=== PATIENT | female | born 1990 | race Hispanic/Latino ===

== ENCOUNTER 2018-12-22 01:35 | Emergency (ER) | payer OTHER ==
[2018-12-22] MEDS ORDERED: SODIUM CHLORIDE 0.9% 50ML 50 ML IVPB ONE (01:36)
[2018-12-22] MEDS ORDERED: KETOROLAC TROMETHAMINE INJ 30 MG/ML VIAL IV ONE (02:09)
[2018-12-22] MEDS ORDERED: PROMETHAZINE HCL INJ 12.5 MG in SODIUM CHLORIDE 0.9% 50ML 50 ML IVPB ONE (02:09)
[2018-12-22] MEDS ORDERED: PROMETHAZINE HCL INJ 25 MG/ML VIAL ONE (02:27)
--- NOTE | 2018-12-22 02:33 | ED.PDOC ---
History of Present Illness - General Chief Complaint: Abdominal Pain Stated Complaint: has gall stones and pain Time Seen by Provider: 12/22/18 02:09 Information Source: patient Exam Limitations: no limitations - History of Present Illness Initial Comments: PT WITH [facility] CONFIRMED GALLSTONES. C/O ABDOMINAL PAIN X 3 DAYS. WAS INITIALLY DIAGNOSED DURING RECENT . DELIVERED APPROX 2 WEEKS AGO. WAS SEEN AT [facility] LAST PM. PAIN HAS CONTINUED. COMES FOR EVALUATION. IS NOT CURRENTLY BREAST FEEDING. Abdominal Pain Onset Location: RUQ, epigastric Pain Radiation: no radiation Quality: moderate Improving Factors: nothing Worsening Factors: nothing Review of Systems - Review of Systems Constitutional: Denies: chills, fever EENTM: States: no symptoms reported Respiratory: Denies: cough, short of breath Cardiology: Denies: chest pain, palpitations Gastrointestinal/Abdominal: States: abdominal pain, nausea, vomiting. Denies: diarrhea Genitourinary: States: no symptoms reported Musculoskeletal: States: no symptoms reported Skin: States: no symptoms reported Neurological: States: no symptoms reported Endocrine: States: no symptoms reported Hematologic/Lymphatic: States: no symptoms reported Past Medical History (General) - Patient Medical History Hx Diabetes: No - Vaccination History Immunizations Up to Date: Yes - Female History Patient : No - Triage Comment ED Triage Comment: Has gall stones and has abd pain Family Medical History - Family History Father Family History: Unknown Physical Exam - Physical Exam General Appearance: Alert, No apparent distress Eyes, Ears, Nose, Throat Exam: PERRL/EOMI, normal ENT inspection Neck: non-tender, full range of motion, supple Respiratory: lungs clear, normal breath sounds Cardiovascular/Chest: regular rate, rhythm, no murmur Gastrointestinal/Abdominal: normal bowel sounds, soft, no organomegaly, other - TTP EPIGASTRIC AND RUQ. NO G/R, NO MURPHYS, UMBILICAL HERNIA EASILY REDUCABLE, NO EVIDECNE INCARCERATION OR STRANGULATION. Back Exam: normal inspection, no CVA tenderness Extremity: normal range of motion, non-tender, normal inspection Neurologic: alert, normal mood/affect Skin Exam: normal color, warm/dry Lymphatic: no adenopathy Progress - Progress Progress: 12/22/18 03:48 CURRENTLY PAIN FREE. ABD SOFT. D/W DR CALABRESE OK TO SEE IN OFFICE. Departure - Departure Clinical Impression: Biliary colic Time of Disposition: 03:49 Disposition: Discharge to Home or Self Care Condition: Good Departure Forms: ED Discharge - Pt. Copy, Patient Portal Self Enrollment Instructions: Gallstones (DC), Low Cholesterol, Saturated Fat, and Trans Fat Diet Referrals: Joshua French MD [Active Staff] - 12/23/18 Prescriptions: Dicyclomine HCl [Bentyl] 20 mg PO Q6HR PRN #20 tab PRN Reason: Abdominal Cramping Home Medications: Ambulatory Orders Dicyclomine HCl [Bentyl] 20 mg PO Q6HR PRN #20 tab 12/22/18
[2018-12-22 04:10] VITALS: BP 120/81; TEMP 97; O2SAT 99
== END 2018-12-22 04:10 | disposition home or self-care (01) ==
LOC: ER 01:35
DX: K80.20 Calculus of gallbladder without cholecystitis without obstruction (principal)
CPT/HCPCS: 80053; 82150; 83690; 85025; J1885; J2550

== ENCOUNTER 2019-01-21 05:35 | Day surgery (SDC) | payer OTHER ==
[2019-01-21] MEDS ORDERED: ceFAZolin SODIUM 1 GM VIAL ONE (06:52)
[2019-01-21] MEDS ORDERED: LACTATED RINGERS 1,000 ML ONE ×2 (06:52→12:52)
[2019-01-21] MEDS ORDERED: SODIUM CHL 0.9% 100ML MINI-BAG 100 ML IVPB ONE (06:52)
[2019-01-21] MEDS ORDERED: PROPOFOL 200 MG/20 ML VIAL IV ONE (07:00)
[2019-01-21] MEDS ORDERED: LIDOCAINE 1% 10 ML VIAL INJ ONE (07:00)
[2019-01-21] MEDS ORDERED: SODIUM CHLORIDE 0.9% 50 ML VIAL ONE (07:00)
[2019-01-21] MEDS ORDERED: METOCLOPRAMIDE HCL INJ 10 MG/2 ML VIAL ONE (07:00)
[2019-01-21] MEDS ORDERED: raNITIdine HCL INJ 25 MG/ML VIAL ONE (07:00)
[2019-01-21] MEDS ORDERED: DEXAMETHASONE INJ 10 MG/ML VIAL ONE (07:00)
[2019-01-21] MEDS ORDERED: BUPIVACAINE 0.25% W/EPI 50 ML VIAL INJ ONE (07:05)
[2019-01-21] MEDS ORDERED: HEPARIN SODIUM (PORCINE) 10,000 UNITS/ML VIAL ONE (07:05)
[2019-01-21] MEDS ORDERED: HYDROmorphone HCL INJ 2 MG/ML VIAL ONE ×2 (07:50→10:07)
[2019-01-21] MEDS ORDERED: KETAMINE HCL 100 MG/ML VIAL ONE (07:50)
[2019-01-21] MEDS ORDERED: ROCURONIUM BROMIDE 10 MG/ML VIAL ONE (07:50)
[2019-01-21] MEDS ORDERED: LACTATED RINGERS 1,000 ML IVS ONE ×2 (07:50→09:57)
[2019-01-21] MEDS ORDERED: MIDAZOLAM INJ 2 MG/2 ML VIAL ONE (07:50)
[2019-01-21] MEDS ORDERED: SUGAMMADEX SODIUM 200 MG/2 ML VIAL IV ONE (09:15)
[2019-01-21] MEDS ORDERED: ONDANSETRON INJ 4 MG/2 ML VIAL ONE (10:07)
[2019-01-21] MEDS ORDERED: ONDANSETRON INJ 4 MG/2 ML VIAL IV ONE (10:11)
[2019-01-21] MEDS ORDERED: HYDROmorphone HCL INJ 2 MG/ML VIAL IV ONE ×2 (10:15→10:25)
[2019-01-21] MEDS ORDERED: PROMETHAZINE HCL INJ 25 MG/ML VIAL ONE (10:22)
[2019-01-21] MEDS ORDERED: PROMETHAZINE HCL INJ 25 MG/ML VIAL IVPB ONE (10:28)
--- NOTE | 2019-01-21 10:31 | OP ---
DATE OF PROCEDURE: 01/21/19 PREOPERATIVE DIAGNOSIS: 1. Symptomatic cholelithiasis. POSTOPERATIVE DIAGNOSIS: 1. Symptomatic cholelithiasis. 2. Chronic cholecystitis. 3. Possible choledocholithiasis without obstruction. PROCEDURE: 1. Laparoscopic cholecystectomy with intraoperative cholangiography using fluoroscopy. SURGEON: Joshua French MD. LINOTYPE WORKER: None. ANESTHESIA: Local infiltration of 0.25% Marcaine with epinephrine and general endotracheal anesthesia. INDICATION: The patient is a 28-year-old female who is times approximately 6 weeks. She had upper abdominal pain and fatty food intolerance and underwent a CT scan that showed gallstones. The patient was brought to the Surgical Suite today for cholecystectomy with cholangiography after the risks, benefits and alternatives to the procedure were discussed and accepted. FINDINGS: The gallbladder wall was thickened. There were multiple small stones. Upon opening the cystic duct, 3 stones were milked out of the duct prior to the insertion of the cystic duct catheter. Intraoperative cholangiography revealed free flow into the duodenum with no obvious filling defects or strictures, however, both the common bile duct, the cystic duct and the biliary tree were all somewhat dilated, but there was no meniscus or stricture noted. DESCRIPTION OF PROCEDURE: After adequate general endotracheal anesthesia was obtained in the supine position, the patient was prepped and draped in the usual sterile manner. Surgical time-out was taken. The infraumbilical area was infiltrated with local anesthesia. A curvilinear incision was fashioned and dissection was carried down to the midline fascia. An umbilical hernia was identified. It was opened at the neck sharply. The fat that was in it was dissected free and reduced into the abdominal cavity. At this point, traction sutures were placed on either side of the hernia. An Thang trocar was introduced under direct vision into the abdominal cavity and fixed in place with the 20 mL balloon. CO2 was then insufflated until a pressure of 12 mmHg was reached and the abdomen was tympanitic in all four quadrants. When this was done, the laparoscope was introduced. The abdomen was inspected with the previously noted findings. The patient was then placed in reverse Trendelenburg position and turned to the left side. The upper abdominal ports were placed under direct vision. The gallbladder was grasped, retracted anteriorly and laterally. The neck of the gallbladder was retracted laterally. The triangle of Calot was then explored with the cystic duct and cystic artery identified and isolated. The cystic duct had 2 stones milked back into the gallbladder and then clipped. The cystic duct was then opened and then again 2 stones were milked out, then an attempt to pass the catheter was unsuccessful, so further milking crushed another stone and the remnants were milked out of the cystic duct. The cholangiogram catheter was then introduced and clipped in place. Cholangiograms were then taken using fluoroscopy which revealed free flow into the duodenum with a dilated biliary tree with no obvious filling defect or stricture identified. At this point, the cystic duct catheter was removed. The cystic duct was hemoclipped three times distally and divided between the hemoclips. The cystic artery was clipped proximally and distally and divided. The gallbladder was then dissected free from the gallbladder bed of the liver using electrocautery. The gallbladder was placed in an EndoCatch bag and removed from the umbilical port site in the usual manner under direct vision. When this was done, the subhepatic space and subphrenic space were irrigated copiously with saline. The gallbladder bed of the liver and the sandra hepatis were inspected and no bleeding or bile leak was identified. At this point, the upper abdominal ports were removed under direct vision and good hemostasis was noted. At this point, the CO2, the laparoscope and the umbilical port were removed. The umbilical port site fascia, which was the umbilical hernia, was closed with two [id number] sutures of 0 Vicryl. Subcutaneous tissue was irrigated with saline. The umbilicus was sutured to the floor of the fascia with a single suture of 0 Vicryl. At this point, again, subcutaneous tissues were irrigated with saline. Skin edges were approximated with a skin stapler. Sterile dressings were applied. The patient was awakened and taken to the Recovery Room in good and stable condition. Estimated blood loss was less than 50 mL. All sponge, needle and instrument counts were correct. #[id number] [facility]
[2019-01-21 11:20] VITALS: TEMP 96.8
[2019-01-21] MEDS ORDERED: HYDROcodone 5MG/APAP 325MG 1 EA TAB ONE ×2 (11:46→12:45)
[2019-01-21] MEDS ORDERED: KETOROLAC TROMETHAMINE INJ 30 MG/ML VIAL ONE (13:02)
[2019-01-21 13:56] VITALS: BP 140/85; O2SAT 99
--- NOTE | 2019-01-23 11:48 | RAD ---
EXAM DESCRIPTION: Fluoroscopy Up to 1Hr CLINICAL HISTORY: IOC COMPARISON: None. IMPRESSION: Spot fluoroscopic intraoperative views of the abdomen are obtained during intraoperative cholangiogram. Contrast opacification of the cystic and distal common bile duct without opacification of the common hepatic and intrahepatic biliary ductal system is seen. No obvious persistent filling defects. Contrast does extend into the duodenum. 30 seconds of intraoperative fluoroscopy time was utilized. No extra exposure images are obtained Electronically signed by: Rocky Seo MD 01/23/2019 11:46 AM CDT
== END 2019-01-21 13:40 | disposition home or self-care (01) ==
LOC: AMB 05:35
PROVIDERS: ATTEND Surgery
DX: K80.10 Calculus of gallbladder with chronic cholecystitis without obstruction (principal); K42.9 Umbilical hernia without obstruction or gangrene
CPT/HCPCS: 00790; 36415; 47563; 76000; 81001; 81025; 85025; A4216; J0690; J1100; J1170; J1644; J1885; J2250; J2405; J2550; J2765; J2780; J3490; J7050; J7120